=== PATIENT | male | born 1995 | race Caucasian/White ===

== ENCOUNTER 2018-01-09 15:51 | Emergency (ER) | payer SELFPAY ==
[2018-01-09 15:59] VITALS: RESP 20; TEMP 98.2; O2SAT 94
--- NOTE | 2018-01-09 16:13 | EDPHY ---
H & P Stated Complaint: fell while bouldering last night, right ankle injury Time Seen by Provider: 01/09/18 16:07 HPI/ROS: HPI: This is a 22-year-old male who presents with Chief Complaint: fell while bouldering last night, right ankle injury Location: Right ankle Quality: Injury Duration: Last Signs and Symptoms: No bleeding, no radiation, no numbness, no weakness, no tingling, no incontinence, no decreased range of motion, + swelling, + pain Timing: Acute Severity: 02/06 Context: Patient reports he was doing and/or climbing in [employer] yesterday when he everted his right ankle and felt a "popping sensation." He reports initially moderate, constant, nonradiating pain that worsened with weight-bearing. The gym members gave him and elastic ankle splint and crutches and he has been nonweightbearing since. He reports that his pain has decreased but does mildly increased with weight-bearing since the injury. He reports that when he rested an elevated his ankle the swelling decreased. No previous history of ankle sprains in that ankle. Denies LOC/head injury/neck pain/ dizziness/nausea/vomiting/amnesia. Modifying Factors: Elevation, rest mild improvement Comment: ROS: see HPI Constitutional: No fever, no chills, no weight loss Eyes: No blurred vision Respiratory: No shortness of breath, no cough Cardiovascular: No chest pain Gastrointestinal: No nausea, no vomiting no diarrhea Genitourinary: No dysuria Extremities: No myalgias Neurologic: No weakness, no numbness Skin: No rashes Hematologic: No bruising, no bleeding MEDICAL/SURGICAL/SOCIAL HISTORY: Medical history: Left wrist fracture. Generally healthy. Does not take any regular medications. Surgical history: Appendectomy Social history: Student CONSTITUTIONAL: Well-developed, well-nourished young adult white male, awake and alert, no obvious distress HEENT: Atraumatic and normocephalic. NECK: supple, no midline tenderness, flexion 45 degrees, extension 45 degrees, right and left lateral flexion 45 degrees. No meningismus. Cardiovascular: Normal S1/S2, regular rate, regular rhythm, without murmur rub or gallop. PULMONARY/CHEST: Symmetrical and nontender. no crepitus. Clear to auscultation bilaterally. Good air movement. No accessory muscle usage. ABDOMEN: Soft, nondistended, nontender, no ecchymosis. PELVIC: no pain with rocking; bilateral hips flexion 125 degrees, extension 30 degrees, with no pain internal rotation and no pain external rotation. BACK: No midline tenderness, no paraspinous spasm, deep tendon reflexes 2/2, no pain with straight leg raise EXTREMITIES: 2/2 pulses, strength 5/5, right Ankle: Plantar flexion to 50, dorsiflexion to 20. Foot inversion to 35 degree. [id number] tenderness/ swelling Anterior talofibular ligament. No tenderness/swelling Calcaneofibular ligament, no tenderness/swelling posterior talofibular ligament, no tenderness/ swelling posterior inferior tibiofibular ligament. No tenderness over talus. Achilles tendon intact. DIP/PIP/MCP flexion/extension intact with good light touch sensation. no deformities, no clubbing, no cyanosis or edema. NEUROLOGICAL: no focal neuro deficits. GCS 15. Light touch sensation intact. SKIN: Warm and dry, no erythema. no rash. Good capillary refill. Source: Patient Exam Limitations: No limitations - Personal History Current Tetanus/Diphtheria Vaccine: Yes Current Tetanus Diphtheria and Acellular Pertussis (TDAP): Yes Tetanus Vaccine Date: < 10 years - Medical/Surgical History Hx Asthma: No Hx Chronic Respiratory Disease: No Hx Diabetes: No Hx Cardiac Disease: No Hx Renal Disease: No Hx Cirrhosis: No Hx Alcoholism: No Hx HIV/AIDS: No Hx Splenectomy or Spleen Trauma: No Other PMH: appy, left wrist fx - Social History Smoking Status: Never smoked Constitutional: Initial Vital Signs Temperature (C) 36.8 C 01/09/18 15:56 Heart Rate 101 H 01/09/18 15:56 Respiratory Rate 20 01/09/18 15:56 Blood Pressure 117/71 01/09/18 15:56 O2 Sat (%) 94 01/09/18 15:56 O2 Delivery Mode Room Air Allergies/Adverse Reactions: No Known Allergies Allergy (Unverified 01/09/18 15:56) Home Medications: Medication Instructions Recorded NK [No Known Home Meds] 01/09/18 Medical Decision Making - Diagnostics Imaging Results: Imaging Impressions Ankle X-Ray 01/09/18 16:08 Impression: Possible mild focal, lateral talar dome compression fracture. Results called to Tonya Carnes at 4:30 PM Procedures: Procedure: Splint placement. A right walking boot was applied the Emergency Room certified endoscopy technician. After application of the splint I returned and re-examined the patient. The splint was adequately immobilizing the joint and distal to the splint the patient's circulation and sensation was intact. ED Course/Re-evaluation: Ankle x-ray my read shows no fracture/dislocation. Radiologist question some lucency at the talar dome. No pain upon palpation. Placed into walking boot. Patient already has crutches. Advised rice therapy and Ortho follow-up. No signs of neurovascular compromise/tenting of skin/compartment syndrome/ extremities and joints examined above and below area of concern and are neurovascularly intact. This patient was seen under the supervision of my secondary supervising physician. I evaluated care for this patient independently. Discussed this patient with Dr. Marin who did not see the patient. Differential Diagnosis: Differential diagnosis includes but is not limited to ankle sprain, [place] fracture, tibia fracture, fibula fracture, nerve injury, ligament injury. Departure - Departure Disposition: Home, Routine, Self-Care Clinical Impression: Grade 2 ankle sprain Qualifiers: Encounter type: initial encounter Laterality: right Qualified Code(s): S93.401A - Sprain of unspecified ligament of right ankle, initial encounter Condition: Good Instructions: Ankle Sprain (ED), R.I.C.E. Treatment (ED) Additional Instructions: Wear the walking boot while out of bed until pain free or seen by Orthopedics for follow-up. Use crutches to aid ambulation start with nonweightbearing and advance as tolerated. Take Tylenol 650 mg every 4 hours and/or Ibuprofen 600 mg every 8 hours with food as needed for pain. Apply ice for 30 minutes at a time; 2-3 times per day for the next 1-2 days. There is a possible lucency in the talar dome spect of your x-ray which could be a mild nondisplaced compression fracture. Follow up with Orthopedics in 7-10 days days at which time they will evaluate and recommend with you if conservative management versus adjuvant therapy is indicated. Referrals: Estuardo Flynn MD [Medical Doctor] - As per Instructions
[2018-01-09 16:56] VITALS: BP 119/66; PULSE 83
== END 2018-01-09 16:55 | disposition home or self-care (01) ==
DX: S93.401A Sprain of unspecified ligament of right ankle, initial encounter (principal); W19.XXXA Unspecified fall, initial encounter; Y99.8 Other external cause status; Y93.39 Activity, other involving climbing, rappelling and jumping off
CPT/HCPCS: L4386